=== PATIENT | female | born 1950 | race Caucasian/White ===

== ENCOUNTER 2018-11-08 08:29 | Inpatient (IN) ==
[2018-11-08] MEDS ORDERED: Chlorhexidine Gluconate 2% 1 Pack (2 Cloths) TOPICAL ONE (09:30)
[2018-11-08] MEDS ORDERED: Sodium Chlor 0.9% Inj 500 ML IV.CONT ONE (09:30)
[2018-11-08] MEDS ORDERED: Metoprolol Tartrate 25 MG Tablet PO ONE (09:30)
[2018-11-08] MEDS ORDERED: Chlorhexidine 4% Topical 120 APPLIC/120 ML Bottle TOPICAL SCH (09:45)
[2018-11-08] MEDS ORDERED: ceFAZolin 2 GM Premix Inj 2 GM/50 ML PIGGYBACK IV.SIG SCH (10:00)
[2018-11-08] MEDS ORDERED: Vancomycin Inj 1,000 MG in Sodium Chlor 0.9% Inj 250 ML IV.SIG SCH (10:00)
[2018-11-08] MEDS ORDERED: Dexamethasone Inj 20 MG/5 ML Vial IV.PUSH ONE (10:00)
[2018-11-08] MEDS ORDERED: Bupivacaine Liposomal PF 1.3% Inj 20 ML Vial ONE (10:26)
[2018-11-08] MEDS ORDERED: Sodium Chlor 0.9% Inj 10 ML ONE (10:27)
[2018-11-08] MEDS ORDERED: Sodium Chlor 0.9% Inj 73.07 ML, Ropivacaine 0.5% PF Inj 24.63 ML, Ketorolac Inj 30 MG, ... P-ARTICULR SCH ×5 (10:30)
[2018-11-08] MEDS ORDERED: SODIUM CHLOR 0.9% IV.SIG SCH (10:30)
[2018-11-08] MEDS ORDERED: TRANEXAMIC ACID IV.SIG SCH (10:30)
[2018-11-08] MEDS ORDERED: fentaNYL Citrate Inj 250 MCG/5 ML Ampul ONE ×2 (10:45→12:26)
[2018-11-08] MEDS ORDERED: Post-op Orders (for Pharmacy) OTHER STA (13:19)
[2018-11-08] MEDS ORDERED: Aluminum/Magnesium/Simethacone Susp 30 ML UDC PO PRN (13:19)
[2018-11-08] MEDS ORDERED: Morphine Inj 4 MG/ML Vial IV.PUSH PRN (13:19)
[2018-11-08] MEDS ORDERED: Bisacodyl 10 MG Supp RECTAL PRN (13:19)
[2018-11-08] MEDS ORDERED: Zolpidem Tartrate 5 MG Tablet PO PRN (13:19)
--- NOTE | 2018-11-08 13:23 | P.OP ---
- Preoperative Diagnosis (1) Osteoarthritis of left knee - Postoperative Diagnosis (1) Osteoarthritis of left knee Date of procedure: 11/08/18 Procedure: Left total knee arthroplasty Anest[facility], [facility] Surgeon: Charles Bustamante MD Instrument Tester: ULISES Oh The surgical procedure was assisted by my Advanced Registered Nurse Practitioner. My BANQUET LINE COOK presence was necessary throughout this case for the manipulation and positioning of the surgical extremity. My BANQUET LINE COOK was assisting me throughout the duration of this procedure. The skill set of an Advance Registered Nurse Practitioner was medically necessary to complete this procedure. During the surgical case, the surgical garment inspector was working at the back table and the Advance Registered Nurse Practitioner was directly assisting me. Operation and Findings: IMPLANTS: DePuy Attune: Patella: size 32. Femur, posterior stabilized size 4. Tibia, rotating platform size 3. Tibial insert, rotating platform, posterior stabilized size 10 mm thickness. ESTIMATED BLOOD LOSS: 100 cc TOURNIQUET TIME: 35 minutes at 250 mmHg pressure. JUSTIFICATION FOR PROCEDURE: The patient has end-stage osteoarthritis to the knee. There is an attached conservative measures pathway form in the chart that describes the nonoperative measures that were undertaken prior to consideration of surgical management. The patient understood the risks and benefits of surgical management. See my office notes for further details PROCEDURE: The patient was brought back to the operative theatre. Adequate anesthesia was obtained. The patient received intravenous vancomycin and Ancef. The lower extremity was prepped and draped in the usual sterile fashion.The leg was exsanguinated, the tourniquet was raised. A standard anterior incision was performed followed by medial parapatellar arthrotomy was performed. End-stage arthritis was identified. Osteotomy of the patella was performed. We drilled holes for the patella. We trialed the patella component. We placed an intramedullary guide into the distal femur. We ultimately resected 13 mm off of the distal femur in 5 degrees of valgus. The remnants of the ACL and PCL were resected. Osteotomy of the proximal tibia was performed, resecting 10 mm off of the medial side. This allowed us to obtain an adequate cut on the lateral side which was eroded. This was done with 3 degrees of posterior slope using an extramedullary guide. The distal end of the guide was placed in the mid aspect of the ankle. We noticed that the lateral side was still very tight with poor ligament balancing. We held the leg in full extension and began with recessing lateral structures to obtain better balance in extension. Later on we were able to evaluate this infection as well. Ultimately we did need to recess the entire popliteus tendon, a portion of the iliotibial band, and a portion of the lateral collateral ligament. This gave us very good ligament balancing. The femur was sized, and four chamfer cuts were completed in 3 of external rotation. We then cut the central box in the distal femur to replace the PCL. We resected the remnants of the menisci and removed osteophytes off of the femur and tibia. We then trialed the knee. We punched the tibia for the keel, and then used standard technique to cement in components. Excess cement was removed. We trialed the knee again and the final polyethylene thickness was chosen to provide extension to 0 degrees, and flexion of 140 degrees to gravity. The ligaments were appropriately balanced. Lateral release was necessary to obtain excellent patellofemoral tracking. The tourniquet was released and adequate hemostasis was obtained. An intra- articular injection of a ropivacaine cocktail was injected. The posterior knee was inspected for excess cement, which was removed. The final polyethylene was put into position after thorough irrigation. We then closed deep fascia with a #2 Stratafix followed by skin with 2-0 Vicryl followed by Dermabond dressing. Postop plan is to weight-bear as tolerated. DVT prophylaxis will be performed with SCDs, JOHN pena, early mobilization, and aspirin.
[2018-11-08] MEDS: Sod Chloride 0.9% Inj 1,000 ML IV.CONT SCH (14:05)
[2018-11-08] MEDS ORDERED: *morphine SULFATE 4 MG/ML PERIprocedure ONLY ONE ×2 (14:24→16:01)
--- NOTE | 2018-11-08 14:28 | XR ---
EXAM DATE: 11/08/2018 2:22 PM EST AGE/SEX: 68 years / Female INDICATIONS: Post op left knee surgery. CLINICAL DATA: This is the patient's initial encounter. Patient reports that signs and symptoms have been present for 1 day and indicates a pain score of Nonresponsive. MEDICAL/SURGICAL HISTORY: None. None. COMPARISON: No prior exams available for comparison. FINDINGS: AP and lateral views of the knee were obtained and demonstrate the patient is status post arthroplast y. The femoral and tibial components are intact and in normal alignment. There are postoperative hopkins ges involving the patella. There is anterior soft tissue swelling and gas. CONCLUSION: Expected postoperative changes status post arthroplasty. Electronically signed by: Anshul Brown MD Board Certified Radiologist 11/08/2018 2:27 PM EST
[2018-11-08] MEDS ORDERED: TRANEXAMIC ACID IV.SIG ONE (14:30)
[2018-11-08] MEDS ORDERED: SODIUM CHLOR 0.9% IV.SIG ONE (14:30)
[2018-11-08] MEDS: ceFAZolin 1 GM Premix Inj 1 GM/50 ML PIGGYBACK IV.SIG SCH ×2 (16:55→22:34)
[2018-11-08] MEDS ORDERED: ESTRADIOL NORETHINDRONE ACET PO SCH (21:00)
[2018-11-08] MEDS: Senna/Docusate Sodium 8.6/50 MG Tablet PO SCH (21:08)
[2018-11-08] MEDS: Multivitamin/Minerals Therapeutic Tablet PO SCH (21:09)
[2018-11-09 05:28] VITALS: O2SAT 96
[2018-11-09 05:57] LABS: Hematocrit 34.4 % (35.0-46.0); Hemoglobin 11.8 gm/dL (11.6-15.3)
--- NOTE | 2018-11-09 07:38 | P.PNOP ---
Subjective Interval history: The patient is resting comfortably in bed with little to no pain to the left knee. The patient states she does want to go home today. Physical Exam Vital signs: Vital Signs 11/08/18 09:10 11/08/18 09:55 11/08/18 13:48 Temperature 98.4 F 98.5 F Pulse Rate 88 80 81 Respiratory Rate 20 14 Blood Pressure 137/81 124/60 Pulse Oximetry 96 97 100 11/08/18 14:00 11/08/18 14:15 11/08/18 14:30 Temperature Pulse Rate 80 81 79 Respiratory Rate 14 14 14 Blood Pressure 108/56 L 110/55 L 109/57 L Pulse Oximetry 99 100 100 11/08/18 14:45 11/08/18 15:00 11/08/18 16:00 Temperature 98.1 F Pulse Rate 81 84 91 H Respiratory Rate 14 14 14 Blood Pressure 108/58 L 108/57 L 121/78 Pulse Oximetry 100 100 100 11/08/18 17:26 11/08/18 18:58 11/08/18 23:00 Temperature 98.0 F 97.5 F L 98.0 F Pulse Rate 92 H 101 H 86 Respiratory Rate 17 18 18 Blood Pressure 116/65 100/56 L 101/58 L Pulse Oximetry 97 95 97 11/09/18 04:34 Temperature 98.8 F Pulse Rate 71 Respiratory Rate 18 Blood Pressure 102/54 L Pulse Oximetry 96 Intake & Output 11/08/18 11/09/18 11/09/18 18:59 06:59 18:59 Intake Total 1350 / 1350 1480 / 1480 Output Total 100 / 100 Balance 1250 / 1250 1480 / 1480 Weight 88.5 kg 88.5 kg Intake: IV 50 / 50 1000 / 1000 NS Inj 1,000 ML @ 80 mls/hr IV. 1000 / 1000 CONT .[id number] DIANDRA Rx#:[id number] Ancef 1 GM Premix Inj 1 gm In 50 / 50 50 ml @ 100 mls/hr IV.SIG Q6H DIANDRA Rx#:[id number] Oral 480 / 480 Anesthesia Amount 1300 / 1300 Output: Estimated Blood Loss 100 / 100 Other: # Voids 1 3 Date of Last Bowel Movement 11/07/18 # Bowel Movements 0 Weight On Admission 88.5 kg Narrative: The patient's dressing is clean, dry, and intact. EHL/TA/G are intact. 2+ pedal pulse. The patient's calf is soft and nontender. Sensation is intact to light touch distally. Results - Labs CBC & Chem 7: 11/09/18 05:20 Laboratory Results - last 24 hr 11/08/18 11/09/18 09:12 05:20 Hgb 11.8 Hct 34.4 L Blood Type AB Negative Antibody Screen Negative - Imaging Impressions Knee X-Ray 11/08/18 13:19 CONCLUSION: Expected postoperative changes status post arthroplasty. - Procedures Left total knee arthroplasty Assessment and Plan - Assessment and Plan POD #1: Left total knee arthroplasty 1. Weightbearing as tolerated on left lower extremity. 2. Aspirin 81 mg twice daily for DVT prophylaxis. 3. Ice as needed for swelling. 4. Stable per ortho for discharge home today following her class 5. The patient will follow up with Dr. Bustamante and/or ULISES Mitchell as previously scheduled.
[2018-11-09] MEDS ORDERED: Dexamethasone Inj 20 MG/5 ML Vial IV.PUSH ONE (08:00)
[2018-11-09 08:45] VITALS: RESP 16; TEMP 97.8
[2018-11-09] MEDS: Sod Chloride 0.9% Inj 1,000 ML IV.CONT SCH (08:46)
[2018-11-09] MEDS: ceFAZolin 1 GM Premix Inj 1 GM/50 ML PIGGYBACK IV.SIG SCH (08:48)
[2018-11-09] MEDS ORDERED: LOSARTAN HYDROCHLOROTHIAZIDE PO SCH (09:00)
[2018-11-09] MEDS ORDERED: hydroCHLOROthiazide 25 MG Tablet PO SCH (09:00)
[2018-11-09] MEDS: Senna/Docusate Sodium 8.6/50 MG Tablet PO SCH (09:09)
[2018-11-09] MEDS: Multivitamin/Minerals Therapeutic Tablet PO SCH (09:09)
[2018-11-09 13:56] VITALS: BP 134/59; PULSE 88
--- NOTE | 2018-11-10 13:56 | P.DS ---
Date of admission: 11/08/18 08:29 Primary care physician: Ash Lopez MD Attending physician on discharge: Charles Bustamante Anticipated date of discharge: 11/09/18 Brief History from admission: The patient was admitted to the hospital for severe osteoarthritis of the left knee to have a left total knee arthroplasty. DS: Summary Hospital Course: The patient was admitted to the hospital for severe osteoarthritis of the left knee to have a left total knee arthroplasty. The patient's surgery went well with no complication. The patient is on a [regular] diet. The patient's DVT prophylaxis includes use of aspirin 81 mg twice daily. The patient is weightbearing as tolerated. The patient was discharged home with [facility] for physical therapy and will follow up in the office with Dr. Bustamante and/or ULISES Mitchell as previously scheduled. - Time Spent with Patient Total time spent providing and/or coordinating discharge services: Greater than 30 minutes - Quality: VTE Deep Vein Thrombosis/Pulmonary Embolism Present on Admission: No Exam Vital signs: Intake & Output 11/09/18 11/10/18 11/10/18 18:59 06:59 18:59 Other: Date of Last Bowel Movement 11/07/18 Narrative: The patient's dressing is clean, dry, and intact. EHL/TA/G are intact. 2+ pedal pulse. The patient's calf is soft and nontender. Sensation is intact to light touch distally. Results Procedures completed during hospitalization: Left total knee arthroplasty - Impressions ITS Impressions Knee X-Ray 11/08/18 13:19 CONCLUSION: Expected postoperative changes status post arthroplasty. Discharge Plan - Discharge Disposition Patient Disposition: 01 Discharge Home - Discharge Condition Condition: Stable - Discharge Order Discharge Orders: Discharge Order (Routine); Ordered 11/08/18 Ordered By: Toni Sawyer - Discharge Details Anticipated Discharge Date: 11/09/18 - Physicians Team Primary Care Provider: Ash Lopez Attending Provider: Charles Bustamante - Rxs /Orders / Referrals /Forms Prescriptions: Continue estradiol-norethindrone acet [Lopreeza] 1-0.5 mg Tablet 1 tab PO HS losartan-hydrochlorothiazide 50-12.5 mg Tablet 0.5 tab PO DAILY Discontinued acetaminophen [Tylenol] 325 mg Tablet 650 mg PO Q4H PRN (Reason: Pain) ibuprofen [Advil] 200 mg Tablet 400 mg PO TID PRN (Reason: Pain) naproxen sodium [Aleve] 220 mg Tablet 220 mg PO BID PRN (Reason: Pain) Ambulatory Orders / Order Sets / DME: Adjustable Commode 3-in-1 (1 each) (Routine) Location: Determined by Patient Ordered By: Toni Sawyer CPM - Continuous Passive Motion Machine (1 each) (Routine) Location: Determined by Patient Ordered By: Toni Sawyer Walker With Front Wheels (1 each) (Routine) Location: Determined by Patient Ordered By: Toni Sawyer Referrals: Charles Bustamante MD [Physician] - See Instructions (F/U in the office with Dr. Bustamante or Jp Sawyer APRN as previously scheduled ) Ash Lopez MD [Primary Care Provider] - See Instructions - Discharge Instructions Patient Printed Instructions: Losartan/Hydrochlorothiazide (By mouth), Estradiol/Norethindrone (By mouth), How to Use an Incentive Spirometer (DC), How to Choose and Use a Walker (GEN), JOHN Hose (DC), Continuous Passive Motion Machine (DC), Knee Replacement (DC) Additional Instructions: Full weight bearing Follow up with Dr Bustamante on 11/16 at 8:40 am [place] [facility] - Post Discharge Care Plan Care Plan Goals: Discharge Care Plan Goals for Total Knee Replacement You have undergone knee replacement surgery. Your doctor replaced your painful joint with an artificial joint to relieve pain and restore movement. Here are some goals to help you heal well. Directions to Meet your Goals: 1. Activity & Exercises: * Take pain medicine as directed by your doctor. * Sit in chairs with arms. The arms make it easier for you to stand up or sit down. * Dont sit for more than 30 to 45 minutes at one time. * Nap if you are tired, but dont stay in bed all day. * Sleep with a pillow under your ankle, not your knee. Be sure to change the position of your leg during the night. * Wear the support stockings you were given in the hospital as directed by your surgeon. 2. Prevent Falls/Injury: The meyer to successful recovery is movement with walking and exercising your knee as directed by your doctor. * Arrange your household to keep the items you need handy. Keep everything else out of the way. * Remove items that may cause you to fall, such as throw rugs and electrical cords. * Use nonslip bath mats, grab bars, an elevated toilet seat, and a shower chair in your bathroom * Sit on a shower stool or chair when you shower to keep from falling. * Until your balance, flexibility, and strength improve, use a cane, crutches, a walker, handrails, or someone to help you. * Keep your hands free by using a backpack, jesus pack, apron, or pockets to carry things * Walk up and down stairs with support. Try one step at a time. Use the railing if possible. * Dont drive until your doctor says its OK. * Dont drive while you are taking opioid pain medicine. 3. Precautions: * Prevent infection. Any infection will need to be treated immediately. Call your doctor right away if you think you might have an infection. * Tell your dentist that you have an artificial joint and take antibiotics as prescribed before any dental work. * Tell all your healthcare providers about your artificial joint before any medical procedure. * Maintain a healthy weight. Get help to lose any extra pounds. Added body weight puts stress on the knee. * Your medications may include blood-thinning medicine to prevent blood clots or antibiotics to prevent infection-prevent any falls or cuts 4. Incision Care: * Prevent infection by washing your hands often. If an infection occurs, it will need to be treated right away. * Call your doctor right away if you think you may have an infection. Symptoms include a fever or an incision that leaks white, green, or yellow fluid. * Don't soak your incision in water until your doctor says its OK. This means no hot tubs, bathtubs, or swimming pools. * Follow your doctor's instructions for changing the dressing. * Dont rub the incision, or apply creams or lotions to it. * If you notice any redness or drainage around the bandage site, contact your surgeon's office immediately. 5. Follow-Up: Do Not miss your follow-up appointment. Keep up with all your appointments and yearly check ups When to call your doctor: Call your doctor right away if you have: Fever of 100.4F (38C) or higher, or as directed by your doctor Shaking chills Stiffness, or inability to move the knee Increased swelling in your leg Increased redness, tenderness, or swelling in or around the knee incision Drainage from the knee incision Increased knee pain Call 911: Call 911 right away if you have: Chest pain Shortness of breath Any pain or tenderness in your calf
== END 2018-11-09 14:49 | disposition home or self-care (01) ==
LOC: HSDI 08:29 → N06 17:09
PROVIDERS: ADMIT Orthopaedic Surgery; ATTEND Orthopaedic Surgery